=== PATIENT | female | born 1995 | race African-American/Black ===

== ENCOUNTER 2017-08-14 07:37 | Outpatient (CLI) | payer OTHER ==
[~2017-08-14] VITALS: Ht 154.9 cm; Wt 68.2 kg
[2017-08-14 08:11] VITALS: BP 111/33; PULSE 71; TEMP 98.3
[2017-08-14] MEDS ORDERED: PROZAC 10MG10 MG PO (09:19)
[2017-08-14] MEDS ORDERED: MELAT3MGTAB PO (09:19)
[2017-08-14 11:00] VITALS: BP 102/65; PULSE 57
[2017-08-14 11:35] VITALS: BP 100/72; PULSE 67
== END 2017-08-14 11:53 | disposition home or self-care (01) ==
LOC: COL.CAR 07:37
DX: R55 Syncope and collapse (principal)

== ENCOUNTER → 2017-12-17 | Outpatient (CLI) | payer OTHER ==
[~2017-12-17] MED LIST: MELAT3MGTAB PO; PROZAC 10MG10 MG PO
== END ==
LOC: COL.CARD 12:45
DX: Z01.89 Encounter for other specified special examinations (principal)